=== PATIENT | female | born 1985 | race Caucasian/White ===

== ENCOUNTER 2018-10-21 07:00 | Inpatient (IN) | payer OTHER ==
[2018-10-21] MEDS: DEXTROSE 5%-LACTATED RINGERS 1,000 ML IV SCH (07:25)
[2018-10-21] MEDS ORDERED: DINOPROSTONE 10 MG VAGINAL SUPPOSITORY VG ONE (08:10)
[2018-10-21 08:13] VITALS: BMI 28.1
--- NOTE | 2018-10-21 08:23 | HP ---
Past Medical History - Primary Care Physician PCP:: Nadege Duenas - Admission Chief Complaint: 33 yrs , 40.6 weeks, sent from the clinic for induction of labor History of Present Illness: pnc at 1, [facility] wt gain 29 lbs 8/392,rpr nr/18 panel : O Pos, Hbsag neg, rubella immune, varicella immune, rpr nr, hiv neg , gc/ct neg, pap normal, sickle neg 07/05/18 28 wk panel quantiferon neg, 1 hr gtt 92, rpr nr 10/02/18 36 wk panel h/h/ 12.3/34.1, GBS POS, gc/ct neg sonogram done by [facility] for growth. 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 No: UTI ...: 2 ...Para: 1 (08/11/04 SGA 4lbs at 40 wks i [place] ) ...Term: 1 ...: 0 ...Spon : 0 ...Induced : 0 ...Multiple Gestation: 0 ...LMP: 01/08/18 ... Weeks Gestation by Dates: 40.6 ...EDC by Dates: 10/15/18 ...EDC by Sono: 10/15/18 Heme/Onc: No: Anemia Infectious Disease: No: AIDS, HIV, STD's, Tuberculosis Psych: No: Addictions, Anxiety, Bipolar, Depression, Panic, Psychosis, Schizophrenia, Other - Past Surgical History Hx Myomectomy: No Hx Transabdominal Cerclage: No Additional Surgical History: RT Renal Lithotripsy 2013 & 2014 - Smoking History Smoking history: Unknown if ever smoked Have you smoked in the past 12 months: No - Alcohol/Substance Use Hx Alcohol Use: No History of Substance Use: reports: None Home Medications - Allergies Allergies/Adverse Reactions: Allergies Allergy/AdvReac Type Severity Reaction Status Date / Time peanut Allergy Severe Rash Verified 10/21/18 07:35 raisins Allergy Severe Rash Uncoded 10/21/18 07:35 - Home Medications Home Medications: Ambulatory Orders Ferrous Sulfate [Iron] 325 mg PO DAILY 10/21/18 Pnv No.95/Ferrous Fum/Folic AC [ Formula] 1 each PO DAILY 10/21/18 Physical Exam - Maternity Vital Signs: Vital Signs Temperature 97.9 F 10/21/18 07:30 Pulse Rate 66 10/21/18 07:30 Respiratory Rate 18 10/21/18 07:30 Blood Pressure 120/70 10/21/18 07:30 O2 Sat by Pulse Oximetry (%) Constitutional: Yes: Well Nourished, No Distress Eyes: Yes: WNL HENT: Yes: WNL, Normocephalic Neck: Yes: WNL Cardiovascular: Yes: WNL Lungs: Clear to auscultation Breast(s): Yes: WNL - Abdominal Exam/OB Fundal Height: 36 Number of Fetuses: Single Presentation: Vertex Contractions: No Monitor Mode: External Heart Rate (range): 130 Heart Rate Location: [facility] Category: I Accelerations: Uniform Decelerations: None - Vaginal Exam/OB Vaginal Bleediing: No Dilatation (cm): FT Effacement (%): 40 Amniotic Membrane Status: Intact Presentation: Vertex/Position Station: -3 - Physical Exam Musculoskeletal: Yes: WNL Extremities: Yes: WNL. No: Calf Tenderness Edema: No Integumentary: Yes: WNL Deep Tendon Reflex Grade: Normal +2 Psychiatric: Yes: WNL, Alert, Oriented - Labs Lab Results: Laboratory Tests 10/21/18 10/21/18 10/21/18 08:00 08:00 08:00 WBC 7.3 Hgb 12.3 Hct 35.9 Plt Count 197 PT with INR 10.30 INR 0.87 PTT (Actin FS) 30.0 Sodium 137 Potassium 3.7 Chloride 106 Carbon Dioxide 22 BUN 7 Creatinine 0.6 Random Glucose 112 H Calcium 8.3 L RPR Titer Blood Type Antibody Screen 10/21/18 10/21/18 08:00 08:00 WBC Hgb Hct Plt Count PT with INR INR PTT (Actin FS) Sodium Potassium Chloride Carbon Dioxide BUN Creatinine Random Glucose Calcium RPR Titer Nonreactive Blood Type O POSITIVE Antibody Screen Negative Problem List - Problems (1) Post term over 40 weeks Code(s): O48.0 - POST-TERM (2) Positive GBS test Code(s): B95.1 - STREPTOCOCCUS, GROUP B, CAUSING DISEASES CLASSD ELSWHR (3) Elective induction of labor planned Code(s): POX4448 - Assessment/Plan 33 yrs , 40.6 weeks , GBS pos for induction of labor . Plan cervidil induction of labor , inserted at 8.10 AM IV Ampicillin for GBS prophylaxis when uc start Trial vaginal delivery Dr Oglesby certified professional coder notified
[2018-10-21 08:47] LABS: BASO % 0.4 % (0-2.0); EOS % 1.1 % (0-4.5); HEMATOCRIT 35.9 % (32.4-45.2); HEMOGLOBIN 12.3 GM/dL (10.7-15.3); MCH 29.3 pg (25.7-33.7); MCHC 34.2 g/dl (32.0-36.0); MEAN CELL VOLUME 85.9 fl (80-96); MEAN PLT VOLUME 8.4 fl (7.5-11.1); MONO % 4.8 % (3.8-10.2); NEUT % 72.7 % (42.8-82.8); PLATELET COUNT 197 K/MM3 (134-434); RBC 4.18 M/mm3 (3.60-5.2); RDW 14.6 % (11.6-15.6); WHITE BLOOD COUNT 7.3 K/mm3 (4.0-10.0)
[2018-10-21 09:00] LABS: ANION GAP 9 MMOL/L (8-16); BLOOD UREA NITROGEN 7 mg/dL (7-18); CALCIUM 8.3 mg/dL (8.5-10.1); CHLORIDE 106 mmol/L (98-107); CO2 22 mmol/L (21-32); CREATININE 0.6 mg/dL (0.55-1.3); GLUCOSE,RANDOM 112 mg/dL (74-106); POTASSIUM 3.7 mmol/L (3.5-5.1); SODIUM 137 mmol/L (136-145)
[2018-10-21 09:06] LABS: INR 0.87 (0.83-1.09); PROTHROMBIN TIME (PATIENT) 10.3 SEC (9.7-13.0)
[2018-10-21] MEDS ORDERED: AMPICILLIN - 2 GM in SODIUM CHLORIDE 100 ML IVPB ONE (10:00)
[2018-10-21] MEDS ORDERED: AMPICILLIN SODIUM 2 GM VIAL ONE (10:04)
[2018-10-21] MEDS ORDERED: PROMETHAZINE HCL 25 MG/1 ML VIAL IVPB ONE (12:49)
[2018-10-21] MEDS ORDERED: BUTORPHANOL TARTRATE 2 MG/ML VIAL IVPB ONE (12:49)
[2018-10-21] MEDS ORDERED: PROMETHAZINE HCL 25 MG/1 ML VIAL ONE (12:51)
[2018-10-21] MEDS ORDERED: BUTORPHANOL TARTRATE 1 MG/ML VIAL ONE ×2 (12:51)
[2018-10-21] MEDS ORDERED: AMPICILLIN SODIUM 1 GM VIAL ONE ×3 (14:04→21:36)
[2018-10-21] MEDS: AMPICILLIN - 1 GM in SODIUM CHLORIDE 100 ML IVPB SCH ×3 (14:07→22:00)
--- NOTE | 2018-10-21 19:14 | PN ---
Progress Note (short form) - Note Progress Note: Patient re-evaluated. She c/o moderate discomfort; s/p stadol. FHR : Reassuring [place] : + contractions Q 1 min VE : 4/80/-2 AROM ( clear ) A/P : Status post cervidil induction Epidural anesthesia Anticipate
[2018-10-21] MEDS ORDERED: FENTANYL/BUPIVACAINE/NS/PF - PCEA - 50 ML DISP.SYRIN EP ONE (19:18)
[2018-10-21] MEDS ORDERED: BUPIVACAINE HCL/PF 0.25% (2.5MG/ML) 10 ML VIAL ONE (19:30)
[2018-10-21] MEDS ORDERED: NALOXONE HCL 0.4 MG/ML VIAL IVPUSH PRN (19:54)
[2018-10-21] MEDS ORDERED: SODIUM PHOSPHATE/NA BIPHOS 133 ML ENEMA PR ONE (20:00)
[2018-10-21] MEDS ORDERED: FENTANYL/BUPIVACAINE/NS/PF - PCEA - 50 ML DISP.SYRIN EP SCH (20:00)
[2018-10-21] MEDS ORDERED: OXYTOCIN 20 UNITS in 0.9% NS 20 UNIT/1,000 ML INFUS.BAG IV ONE (20:05)
[2018-10-21] MEDS ORDERED: OXYTOCIN 30 UNITS in 0.9% NS 30 UNIT/500 ML INFUS.BAG IVPB ONE (20:28)
[2018-10-21] MEDS ORDERED: OXYTOCIN 30 UNITS in 0.9% NS 30 UNIT/500 ML INFUS.BAG IVPB SCH (20:30)
[2018-10-21] MEDS ORDERED: ELECTROLYTE-148 SOLN 1,000 ML IV SCH (20:30)
[2018-10-21] MEDS ORDERED: SODIUM CHLORIDE 100 ML IVPB ONE (21:36)
[2018-10-21] MEDS ORDERED: METHYLERGONOVINE MALEATE 0.2 MG/1 ML AMP IM PRN (22:27)
[2018-10-21] MEDS ORDERED: ACETAMINOPHEN 325 MG TABLET (FP) PO PRN (22:27)
[2018-10-21] MEDS ORDERED: BENZOCAINE 20% 57 GM BOTTLE TP PRN (22:27)
[2018-10-21] MEDS ORDERED: WITCH HAZEL 50% (TUCKS) 40 PAD/JAR PAD TP PRN (22:27)
[2018-10-21] MEDS ORDERED: BENZOCAINE 28 GM HEMORRHOIDAL OINTMENT TP PRN (22:27)
[2018-10-21] MEDS ORDERED: BISACODYL 10 MG SUPP.RECT RC PRN (22:27)
[2018-10-21] MEDS ORDERED: IBUPROFEN 600 MG TABLET (FP) PO PRN (22:27)
[2018-10-21] MEDS ORDERED: OXYTOCIN 20 UNITS in 0.9% NS 20 UNIT/1,000 ML INFUS.BAG IV SCH (22:30)
--- NOTE | 2018-10-21 22:31 | PN ---
Delivery - Delivery Vaginal Delivery: Spontaneous Type of Anesthesia: Epidural Episiotomy/Laceration: 1st degree EBL (cc): 300 Delivery, Single - Josephine Feeding Plan Initial Plan: Elected not to breastfeed exclusively throughout hospitalization Remarks - Remarks Remarks: Normal spontaneous vaginal delivery of a live infant boy over first degree laceration. Nose / Oropharynx suctioned @ perineum. Nuchal cord x 1 clamped and cut. Baby handed to nurse. Placenta expelled spontaneously intact. Laceration repaired with 2.0 chromic.
[2018-10-22] MEDS: AMPICILLIN - 1 GM in SODIUM CHLORIDE 100 ML IVPB SCH ×2 (03:04→06:20)
[2018-10-22 07:39] LABS: BASO % 0.4 % (0-2.0); EOS % 0.6 % (0-4.5); HEMATOCRIT 34.2 % (32.4-45.2); HEMOGLOBIN 11.8 GM/dL (10.7-15.3); LYMPH % 14.4 % (8-40); MCH 29.4 pg (25.7-33.7); MCHC 34.7 g/dl (32.0-36.0); MEAN CELL VOLUME 84.8 fl (80-96); MEAN PLT VOLUME 8.3 fl (7.5-11.1); MONO % 5.5 % (3.8-10.2); NEUT % 79.1 % (42.8-82.8); PLATELET COUNT 179 K/MM3 (134-434); RBC 4.03 M/mm3 (3.60-5.2); RDW 14.5 % (11.6-15.6); WHITE BLOOD COUNT 11.4 K/mm3 (4.0-10.0)
[2018-10-22] MEDS: PRENATAL VITAMINS W/ FOLIC ACID TABLET (FP) PO SCH (09:17)
[2018-10-22] MEDS: FERROUS SO4 325 MG TABLET (FP) PO SCH ×2 (09:17→20:59)
--- NOTE | 2018-10-22 09:58 | PN ---
Post Progress Note - Subjective Subjective: 33 yo Para 2 status post vaginal delivery, seen and evaluated. Doing well. Post Day: 1 Type of Delivery: Vital Signs: Vital Signs Temperature 98.2 F 10/22/18 07:10 Pulse Rate 65 10/22/18 07:10 Respiratory Rate 18 10/22/18 07:10 Blood Pressure 96/65 10/22/18 07:10 O2 Sat by Pulse Oximetry (%) 96 10/21/18 23:15 Breast Exam: Yes: Soft Uterus: Yes: Fundus Firm Abdomen/GI: Yes: Abdomen soft, Tolerating PO Lochia: Yes: Rubra Lochia, amount: Moderate Extremities: Yes: Calves non-tender Perineum: Yes: Laceration (Healing) Activity: Ambulating - Labs Labs: CBC WBC 11.4 K/mm3 (4.0-10.0) H 10/22/18 06:55 RBC 4.03 M/mm3 (3.60-5.2) 10/22/18 06:55 Hgb 11.8 GM/dL (10.7-15.3) 10/22/18 06:55 Hct 34.2 % (32.4-45.2) 10/22/18 06:55 MCV 84.8 fl (80-96) 10/22/18 06:55 MCH 29.4 pg (25.7-33.7) 10/22/18 06:55 MCHC 34.7 g/dl (32.0-36.0) 10/22/18 06:55 RDW 14.5 % (11.6-15.6) 10/22/18 06:55 Plt Count 179 K/MM3 (134-434) 10/22/18 06:55 MPV 8.3 fl (7.5-11.1) 10/22/18 06:55 Absolute Neuts (auto) 9.0 K/mm3 (1.5-8.0) H 10/22/18 06:55 Neutrophils % 79.1 % (42.8-82.8) 10/22/18 06:55 Lymphocytes % 14.4 % (8-40) D 10/22/18 06:55 Monocytes % 5.5 % (3.8-10.2) 10/22/18 06:55 Eosinophils % 0.6 % (0-4.5) 10/22/18 06:55 Basophils % 0.4 % (0-2.0) 10/22/18 06:55 Nucleated RBC % 0 % (0-0) 10/22/18 06:55 Problem List - Problems (1) Status post normal vaginal delivery Code(s): [id number] - Assessment/Plan Status post vaginal delivery stable Continue routine care
[2018-10-22] MEDS: DEXTROSE 5%-LACTATED RINGERS 1,000 ML IV SCH (19:48)
[2018-10-22] MEDS ORDERED: SENNOSIDES/DOCUSATE COMBO (SENNA PLUS) TABLET (UD) PO PRN (22:00)
--- NOTE | 2018-10-23 06:29 | DS ---
Physical Exam-FIRE SAFETY DIRECTOR Vital Signs: Vital Signs Temperature 99.5 F 10/22/18 21:08 Pulse Rate 77 10/22/18 21:08 Respiratory Rate 18 10/22/18 21:08 Blood Pressure 109/64 10/22/18 21:08 O2 Sat by Pulse Oximetry (%) 96 10/21/18 23:15 Constitutional: Yes: Well Nourished Eyes: Yes: WNL HENT: Yes: WNL, Normocephalic Neck: Yes: WNL Cardiovascular: Yes: WNL, Regular Rate and Rhythm Respiratory: Yes: WNL Gastrointestinal: Yes: WNL ...Rectal Exam: Yes: WNL Renal/: Yes: WNL ....Post : Yes: Uterus firm, Moderate lochia rubra (2nd degree laceration healing) Breast(s): Yes: WNL (BF) Musculoskeletal: Yes: WNL Extremities: Yes: WNL. No: Calf Tenderness Integumentary: Yes: WNL Wound/Incision: Yes: Clean/Dry Neurological: Yes: WNL ...Motor Strength: WNL Psychiatric: Yes: WNL, Alert, Oriented Labs: CBC, BMP 10/22/18 06:55 10/21/18 08:00 Delivery - Delivery Vaginal Delivery: Spontaneous Type of Anesthesia: Epidural Episiotomy/Laceration: 1st degree EBL (cc): 300 Delivery, Single - Stages of Labor Date 1st Stage Initiatied: 10/21/18 Time 1st Stage Initiated: 19:10 Date 2nd Stage Initiated: 10/21/18 Time 2nd Stage Initiated: 22:00 Date of Delivery: 10/21/18 Time of Delivery: 22:17 Time Placenta Delivered: 22:20 - Condition of Brokerage Clerk/Product Test Specialist Present: No Infant Gender: Male Position: Left, OA Total Hours ROM (Hrs/Mins): 3hrs 7mins - 1 Minute Total Score: 7 5 Minutes Total Score: 8 - Feeding Plan Initial Plan: Elected not to breastfeed exclusively throughout hospitalization Remarks - Remarks Remarks: 33 yrs ,40.6 weeks s/p cervidil induction s/p delivery by Dr Oglesby pp course uneventful baby in NICU discharge today Discharge Summary Reason For Visit: CERVIDIL INDUCTION Current Active Problems Elective induction of labor planned (Acute) Positive GBS test (Acute) Post term over 40 weeks (Acute) Status post normal vaginal delivery (Acute) Condition: Stable - Instructions Diet, Activity, Other Instructions: Discharge Instructions * Out of Bed * * Regular Diet * Anel Care * Avoid sex for 6 weeks * rtc 6 4-6 weeks If you experience excessive bleeding or fever over 101 degrees, call doctor, the clinic or go to the Emergency Room. Referrals: Nadege Duenas MD [Staff Physician] - Disposition: HOME - Home Medications Comprehensive Discharge Medication List: Ambulatory Orders Ferrous Sulfate [Iron] 325 mg PO DAILY 10/21/18 Pnv No.95/Ferrous Fum/Folic AC [ Formula Tablet] 1 each PO DAILY Acetaminophen [Tylenol .Regular Strength -] 650 mg PO Q3H PRN tablet 10/23/18 Benzocaine [Americaine 20% [place] -] 1 spray TP PRN PRN bottle 10/23/18 Ferrous Sulfate [Feosol] 325 mg PO BID tab 10/23/18 Ibuprofen [Motrin -] 200 mg PO Q4H PRN tablet 10/23/18 Vitamins (Sjr) - 1 tab PO DAILY tablet 10/23/18 Witch Beth 50% (Tucks) [Tucks Pads -] 1 pad TP PRN PRN pad 10/23/18
[2018-10-23 08:03] VITALS: BP 115/42; PULSE 61; TEMP 97.5
[2018-10-23] MEDS: FERROUS SO4 325 MG TABLET (FP) PO SCH (09:12)
[2018-10-23] MEDS: PRENATAL VITAMINS W/ FOLIC ACID TABLET (FP) PO SCH (09:12)
== END 2018-10-23 17:30 | disposition home or self-care (01) | DRG 560 ==
LOC: JLDR 07:00 → J3W 10-22 00:08
PROVIDERS: ADMIT Obstetrics & Gynecology; ATTEND Obstetrics & Gynecology
PROC: 10E0XZZ Delivery of Products of Conception, External Approach (ICD-10-PCS; principal; 2018-10-21)
PROC: 0W8NXZZ Division of Female Perineum, External Approach (ICD-10-PCS; 2018-10-21)
PROC: 0HQ9XZZ Repair Perineum Skin, External Approach (ICD-10-PCS; 2018-10-21)
PROC: 3E0P7VZ Introduction of Hormone into Female Reproductive, Via Natural or Artificial Opening (ICD-10-PCS; 2018-10-21)
DX: O70.0 First degree perineal laceration during delivery (principal); O48.0 Post-term pregnancy; Z3A.40 40 weeks gestation of pregnancy; Z22.330 Carrier of Group B streptococcus; Z37.0 Single live birth
CPT/HCPCS: 36415; 59409; 80048; 85025; 85610; 85730; 86593; 86850; 86900; 86901